=== PATIENT | female | born 1950 | race Hispanic/Latino ===

== ENCOUNTER → 2023-10-13 | Outpatient (CLI) | payer OTHER | END | disposition home or self-care (01) | LOC: SHCH 13:24 | PROVIDERS: ATTEND Internal Medicine | DX: I08.3 Combined rheumatic disorders of mitral, aortic and tricuspid valves (principal); I48.0 Paroxysmal atrial fibrillation; E11.9 Type 2 diabetes mellitus without complications; Z79.01 Long term (current) use of anticoagulants; Z79.84 Long term (current) use of oral hypoglycemic drugs; Z79.899 Other long term (current) drug therapy | CPT/HCPCS: 93306 ==

== ENCOUNTER → 2023-12-15 | Outpatient (CLI) | payer OTHER | END | disposition home or self-care (01) | LOC: LAB 11:17 | PROVIDERS: ATTEND Internal Medicine Cardiovascular Disease | DX: I48.19 Other persistent atrial fibrillation (principal) | CPT/HCPCS: 36415; 80162 ==

== ENCOUNTER 2024-03-28 07:42 | Day surgery (SDC) | payer OTHER ==
[2024-03-26 11:00] LABS: BASOPHILS # (AUTO) 0.07 K/uL (0.00-0.20); BASOPHILS % (AUTO) 0.6 % (0.0-5.0); EOSINOPHILS # (AUTO) 0.24 K/uL (0.00-0.70); EOSINOPHILS % (AUTO) 1.9 % (0.0-8.0); HEMATOCRIT 42.6 % (36-48); IMMATURE GRANULOCYTE ABSOLUTE 0.04 K/uL (0-1); LYMPHOCYTES # (AUTO) 3.5 K/uL (1.0-4.8); LYMPHOCYTES % (AUTO) 28.2 % (21.0-51.0); MEAN CORPUSCULAR HEMOGLOBIN 31.2 pg (27.0-33.0); MEAN CORPUSCULAR HGB CONC 33.8 g/dL (32.0-36.0); MEAN CORPUSCULAR VOLUME 92.4 fL (79-99); MONOCYTES # (AUTO) 1.3 K/uL (0.1-1.0); MONOCYTES % (AUTO) 10.8 % (3.0-13.0); NEUTROPHILS # (AUTO) 7.2 K/uL (1.8-7.7); NEUTROPHILS % (AUTO) 58.2 % (40.0-77.0); PLATELET COUNT (AUTO) 348 K/uL (130-400); RED BLOOD CELL COUNT(AUTO) 4.61 MIL/uL (4.00-5.50); RED CELL DISTRIBUTION WIDTH 13.9 % (11.0-15.5); WHITE BLOOD COUNT (AUTO) 12.4 K/uL (4.8-10.8)
[2024-03-26 11:06] LABS: CREATININE 0.8 mg/dL (0.5-1.0); POTASSIUM 4.7 mmol/L (3.5-5.1)
[2024-03-26 11:18] VITALS: BP 119/74; PULSE 96; RESP 18
[2024-03-26 11:26] LABS: B-TYPE NATRIURETIC PEPTIDE 68 pg/mL (0-100)
[2024-03-26 11:39] LABS: INR 0.99 (0.85-1.15); PROTHROMBIN TIME 10.7 SEC (9.6-11.6)
[2024-03-26 11:41] LABS: PARTIAL THROMBOPLASTIN TIME 24.6 SEC (26.3-35.5)
[~2024-03-28] VITALS: Ht 149.9 cm; Wt 64.4 kg
[2024-03-28] VITALS (13 sets, daily range): BP systolic 92–117; BP diastolic 40–85; PULSE 64–122; RESP 5–19
[~2024-03-28 07:42] MED LIST: ACET-2743 PO; ALEN70TA80 PO; CHOL2000 PO; DIGO125T71 PO; DULO20CA18 PO; EMPA25TA PO; FAMO20TA8 PO; FOLI0.8C PO; LORA-997 PO; METF-446 PO; METO-408 PO; RIVA20TA PO; SIMV-43 PO; ZOLP5TAB8 PO; [UNRECOGNIZED DRUG - OTHER] OU
[2024-03-28] MEDS: 0.9%NACL 1000ML 1,000 ML IV ONE (08:58)
[2024-03-28] MEDS ORDERED: PROPOFOL 10 MG/ML 20ML VIAL IV ONE (09:01)
== END 2024-03-28 11:30 | disposition home or self-care (01) ==
LOC: DAH 07:42
PROVIDERS: ATTEND Internal Medicine
DX: I48.0 Paroxysmal atrial fibrillation (principal); E11.9 Type 2 diabetes mellitus without complications; M19.90 Unspecified osteoarthritis, unspecified site; Z79.01 Long term (current) use of anticoagulants; Z79.84 Long term (current) use of oral hypoglycemic drugs; Z79.899 Other long term (current) drug therapy
CPT/HCPCS: 71045; 80048; 83880; 85025; 85610; 85730; 36415; 93005 ×3; 92960; 82948; J7030; J2704; A4620; A4215; A4222; A4221; A4663; A4216; A4606; A4223 ×3; J3490